=== PATIENT | female | born 1985 | race Caucasian/White ===

== ENCOUNTER 2016-12-01 18:59 | Emergency (ER) | payer OTHER | END 2016-12-01 19:40 | disposition home or self-care (01) | LOC: FER 18:59 | DX: T67.5XXA Heat exhaustion, unspecified, initial encounter (principal); X50.0XXA Overexertion from strenuous movement or load, initial encounter; Y93.02 Activity, running; Y92.84 Military training ground as the place of occurrence of the external cause ==